=== PATIENT | male | born 1985 | race Caucasian/White ===

== ENCOUNTER 2016-08-03 19:34 | Emergency (ER) | payer OTHER ==
[~2016-08-03] VITALS: Ht 193 cm; Wt 108.0 kg
[~2016-08-03 19:34] MED LIST: NAPROXEN500 MG PO
[2016-08-03 20:00] LABS: HEMATOCRIT 46.3 % (38.0-50.0); MCH 29.2 PG (29.0-34.0); MCHC 33.7 G/DL (30.0-36.0); MCV 86.7 FL (86-99); MEAN PLAT.VOLUME 10.3 uM^3 (9.0-12.4); PLATELET COUNT 227 K/uL (156-360); RBC DIS.WIDTH-CV 12.2 % (11.8-14.6); RBC DIS.WIDTH-SD 38.5 % (39-53); RED BLOOD COUNT 5.34 M/uL (4.00-5.50); WHITE BLOOD COUNT 9.9 K/uL (4.1-10.2)
[2016-08-03 20:10] LABS: CHLORIDE 106 mEq/L (99-109); POTASSIUM 3.7 mEq/L (3.7-5.4); SODIUM 141 mEq/L (136-147)
[2016-08-03 20:11] LABS: GLUCOSE 90 mg/dL (70-99)
[2016-08-03 20:13] LABS: ANION GAP 9 MEQ/L (2-14)
[2016-08-03 20:15] LABS: GFR ESTIMATE (CALCULATED) > 59 mL/min/
[2016-08-03 20:16] LABS: UREA NITROGEN (BUN) 16 mg/dL (9-23)
[2016-08-03 20:21] LABS: TROP-I INTERPRETATION NEGATIVE; TROPONIN-I 0.02 ng/mL (0.0-0.30)
[2016-08-03 22:24] LABS: TROP-I INTERPRETATION NEGATIVE; TROPONIN-I < 0.01 ng/mL (0.0-0.30)
[2016-08-03 23:27] VITALS: BP 118/75
== END 2016-08-03 23:32 | disposition home or self-care (01) ==
LOC: EME 19:34
PROVIDERS: Nurse Practitioner Family
DX: R07.9 Chest pain, unspecified (principal); Z82.49 Family history of ischemic heart disease and other diseases of the circulatory system; F10.99 Alcohol use, unspecified with unspecified alcohol-induced disorder; F12.90 Cannabis use, unspecified, uncomplicated; R06.02 Shortness of breath; R11.0 Nausea; I45.10 Unspecified right bundle-branch block; F17.200 Nicotine dependence, unspecified, uncomplicated
CPT/HCPCS: 71020; 80048; 84484; 85027; 93005; 99281; 99283

== ENCOUNTER 2016-08-31 17:23 | Emergency (ER) | payer OTHER ==
[~2016-08-31] VITALS: Ht 182.9 cm; Wt 109.4 kg
[2016-08-31 18:12] LABS: ADD MIUA? NO; BILIRUBIN NEGATIVE; BLOOD NEGATIVE; COLOR YELLOW ((YELLOW)); GLUCOSE (STRIP) NEGATIVE; KETONES NEGATIVE; LEUKOCYTES NEGATIVE; NITRITE NEGATIVE; PROTEIN (STRIP) NEGATIVE; SPECIFIC GRAVITY 1.021 (1.000-1.030); UCUL ADDED? NO; UROBILINOGEN 0.2 MG/DL (0.2-1.0)
[2016-08-31] MEDS ORDERED: FLEXERIL10 MG PO (20:54)
[2016-08-31] MEDS ORDERED: PREDNISONE20 MG PO (20:54)
[2016-08-31] MEDS ORDERED: ULTRAM50 MG PO (20:55)
[2016-08-31] MEDS ORDERED: MOTRIN800 MG PO (20:55)
[2016-08-31 21:25] VITALS: BP 113/65
== END 2016-08-31 21:26 | disposition home or self-care (01) ==
LOC: EME 17:23
DX: M54.42 Lumbago with sciatica, left side (principal); Z87.891 Personal history of nicotine dependence
CPT/HCPCS: 72100; 81003; 99281; 99283; J1885; J7512